=== PATIENT | female | born 1980 | race African-American/Black ===

== ENCOUNTER 2017-04-05 21:06 | Emergency (ER) | payer MEDICAID ==
[~2017-04-05] VITALS: Ht 170.2 cm; Wt 67.0 kg
[~2017-04-05 21:06] MED LIST: NORV100T PO; PENVK500 PO; PREZ150T PO; RALT400 PO; TRAM50 PO; TRUVTAB2 PO
[2017-04-05 21:08] VITALS: BP 149/88; PULSE 80; RESP 15; TEMP 99; O2SAT 99
--- NOTE | 2017-04-05 22:04 | PD ---
HPI Chief Complaint: Medical Clearance Time Seen by Provider: 22:00 Travel History International Travel<30 days: No Contact w/Intl Traveler<30days: No Traveled to known affect area: No History of Present Illness HPI 36-year-old black female presents emergency department requesting to get back on her HIV medicines. She states that she's been off her medication since November. She states that November 21 her mother . She had asked way from complications of heart disease. Since then she has not been taking her medications and been feeling increasingly depressed. She also states that she has a substance abuse problem. She does flakka, and crack cocaine. Patient states that she came in tonight because she knew she needed to get back on her medicines. She denies any toxic ingestions. She denies any suicidal ideation. No homicidal ideation. She does admit to feeling rundown, weak and having increased sleep which she reports is related to her HIV disease. PFSH Past Medical History Narrative Medical CVA with minor right sided weakness, HIV positive, anxiety, depression, substance abuse Anemia: Yes Arthritis: No Asthma: No Autoimmune Disease: Yes (HIV) Blood Disorders: Yes (ANEMIA) Anxiety: Yes Depression: Yes Heart Rhythm Problems: No Cancer: No Cardiovascular Problems: No High Cholesterol: No Chemotherapy: No Chest Pain: No Congestive Heart Failure: No COPD: No Cerebrovascular Accident: Yes Diabetes: No Diminished Hearing: No Endocrine: No GERD: No Glaucoma: No Genitourinary: No Headaches: No Hepatitis: No Hiatal Hernia: No Hypertension: No Immune Disorder: Yes Kidney Stones: No Musculoskeletal: No Neurologic: No Psychiatric: No Reproductive: No Respiratory: No Migraines: No Myocardial Infarction: No Radiation Therapy: No Renal Failure: No Seizures: No Sickle Cell Disease: No Sleep Apnea: No Thyroid Disease: No Ulcer: No Tetanus Vaccination: Unknown : 1 Para: 1 Past Surgical History Narrative Surgical Cholecystectomy, Abdominal Surgery: Yes (C -SECTION) AICD: No Appendectomy: No Arteriovenous Shunt: No Cardiac Surgery: No Section: Yes (X1) Cholecystectomy: Yes Ear Surgery: No Endocrine Surgery: No Eye Surgery: No Genitourinary Surgery: No Gynecologic Surgery: Yes (C SECTION) Insulin Pump: No Joint Replacement: No Oral Surgery: No Pacemaker: No Thoracic Surgery: No Other Surgery: Yes Social History Alcohol Use: Yes (occassional) Tobacco Use: Yes (CIGARETTES, 1 PPD X 13 YEARS) Substance Use: Yes Allergies-Medications (Allergen,Severity, Reaction): Coded Allergies: No Known Allergies (Verified , 04/05/17) Reported Meds & Prescriptions Reported Meds & Active Scripts Active Reported Prezista (Darunavir) 600 Mg Tab 600 Mg PO BID Truvada (Emtricitabine-Tenofovir Disoproxil Fumarate) Unknown Strength Tab Unknown Dose PO DAILY Isentress (Raltegravir) 400 Mg Tab 400 Mg PO BID Norvir (Ritonavir) 100 Mg Cap 100 Mg PO BID Review of Systems Except as stated in HPI: all other systems reviewed are Neg Physical Exam Narrative GENERAL: Well-developed, well-nourished in no apparent distress. Nontoxic appearing. HEAD: Normocephalic, atraumatic. EYES: Pupils equal round and reactive. Extraocular motions intact. No scleral icterus. No injection or drainage. ENT: Nose clear. Throat without erythema, tonsillar hypertrophy or exudate. Uvula midline. Airway patent. NECK: Trachea midline. Supple, nontender, moves head freely. No central bony tenderness or spasm. CARDIOVASCULAR: Regular rate and rhythm without murmurs, gallops, or rubs. RESPIRATORY: Clear to auscultation. Breath sounds equal bilaterally. No wheezes , rales, or rhonchi. GASTROINTESTINAL: Abdomen soft, non-tender, nondistended. No hepato-splenomegaly , or palpable masses. No guarding. EXTREMITIES: No clubbing, cyanosis, or edema. No joint tenderness. BACK: Nontender without deformity. No flank tenderness. NEUROLOGICAL: Awake, alert and oriented x 3 .Cranial nerves grossly intact. Motor and sensory grossly within normal limits. Normal speech. Data Data Last Documented VS Vital Signs Date Time Temp Pulse Resp B/P Pulse Ox O2 Delivery O2 Flow Rate FiO2 04/05/17 21:08 99.0 80 15 149/88 99 Room Air Orders Complete Blood Count With Diff (04/05/17 22:04) Comprehensive Metabolic Panel (04/05/17 22:04) Urinalysis - C+S If Indicated (04/05/17 22:04) Ed Urine Pregnancytest Poc (04/05/17 22:04) Urine Culture (04/05/17 22:30) Labs Laboratory Tests Test 04/05/17 22:30 White Blood Count 7.3 TH/MM3 Red Blood Count 4.73 MIL/MM3 Hemoglobin 11.0 GM/DL Hematocrit 33.9 % Mean Corpuscular Volume 71.7 FL Mean Corpuscular Hemoglobin 23.4 PG Mean Corpuscular Hemoglobin 32.6 % Concent Red Cell Distribution Width 18.5 % Platelet Count 209 TH/MM3 Mean Platelet Volume 9.5 FL Neutrophils (%) (Auto) 42.6 % Lymphocytes (%) (Auto) 46.4 % Monocytes (%) (Auto) 7.8 % Eosinophils (%) (Auto) 2.5 % Basophils (%) (Auto) 0.7 % Neutrophils # (Auto) 3.1 TH/MM3 Lymphocytes # (Auto) 3.4 TH/MM3 Monocytes # (Auto) 0.6 TH/MM3 Eosinophils # (Auto) 0.2 TH/MM3 Basophils # (Auto) 0.0 TH/MM3 CBC Comment AUTO DIFF Differential Comment AUTO DIFF CONFIRMED Platelet Estimate NORMAL Platelet Morphology Comment NORMAL Target Cells 1+ Urine Color YELLOW Urine Turbidity HAZY Urine pH 6.5 Urine Specific Anchor 1.019 Urine Protein TRACE mg/dL Urine Glucose (UA) NEG mg/dL Urine Ketones NEG mg/dL Urine Occult Blood NEG Urine Nitrite NEG Urine Bilirubin NEG Urine Urobilinogen LESS THAN 2.0 MG/DL Urine Leukocyte Esterase MOD Urine RBC 4 /hpf Urine WBC 9 /hpf Urine Squamous Epithelial 13 /hpf Cells Urine Renal Epithelial Cells <1 /hpf Urine Bacteria RARE /hpf Urine Mucus FEW /lpf Microscopic Urinalysis Comment CULTURE INDICATED Sodium Level 141 MEQ/L Potassium Level 3.7 MEQ/L Chloride Level 108 MEQ/L Carbon Dioxide Level 27.2 MEQ/L Anion Gap 6 MEQ/L Blood Urea Nitrogen 8 MG/DL Creatinine 0.91 MG/DL Estimat Glomerular Filtration 85 ML/MIN Rate Random Glucose 91 MG/DL Calcium Level 8.5 MG/DL Total Bilirubin 0.2 MG/DL Aspartate Amino Transf 26 U/L (AST/SGOT) Alanine Aminotransferase 19 U/L (ALT/SGPT) Alkaline Phosphatase 119 U/L Total Protein 8.4 GM/DL Albumin 2.5 GM/DL MDM Medical Decision Making Medical Screen Exam Complete: Yes Emergency Medical Condition: Yes Medical Record Reviewed: Yes Interpretation(s) Laboratory Tests Test 04/05/17 22:30 White Blood Count 7.3 TH/MM3 Red Blood Count 4.73 MIL/MM3 Hemoglobin 11.0 GM/DL Hematocrit 33.9 % Mean Corpuscular Volume 71.7 FL Mean Corpuscular Hemoglobin 23.4 PG Mean Corpuscular Hemoglobin 32.6 % Concent Red Cell Distribution Width 18.5 % Platelet Count 209 TH/MM3 Mean Platelet Volume 9.5 FL Neutrophils (%) (Auto) 42.6 % Lymphocytes (%) (Auto) 46.4 % Monocytes (%) (Auto) 7.8 % Eosinophils (%) (Auto) 2.5 % Basophils (%) (Auto) 0.7 % Neutrophils # (Auto) 3.1 TH/MM3 Lymphocytes # (Auto) 3.4 TH/MM3 Monocytes # (Auto) 0.6 TH/MM3 Eosinophils # (Auto) 0.2 TH/MM3 Basophils # (Auto) 0.0 TH/MM3 CBC Comment AUTO DIFF Differential Comment AUTO DIFF CONFIRMED Platelet Estimate NORMAL Platelet Morphology Comment NORMAL Target Cells 1+ Urine Color YELLOW Urine Turbidity HAZY Urine pH 6.5 Urine Specific Anchor 1.019 Urine Protein TRACE mg/dL Urine Glucose (UA) NEG mg/dL Urine Ketones NEG mg/dL Urine Occult Blood NEG Urine Nitrite NEG Urine Bilirubin NEG Urine Urobilinogen LESS THAN 2.0 MG/DL Urine Leukocyte Esterase MOD Urine RBC 4 /hpf Urine WBC 9 /hpf Urine Squamous Epithelial 13 /hpf Cells Urine Renal Epithelial Cells <1 /hpf Urine Bacteria RARE /hpf Urine Mucus FEW /lpf Microscopic Urinalysis Comment CULTURE INDICATED Sodium Level 141 MEQ/L Potassium Level 3.7 MEQ/L Chloride Level 108 MEQ/L Carbon Dioxide Level 27.2 MEQ/L Anion Gap 6 MEQ/L Blood Urea Nitrogen 8 MG/DL Creatinine 0.91 MG/DL Estimat Glomerular Filtration 85 ML/MIN Rate Random Glucose 91 MG/DL Calcium Level 8.5 MG/DL Total Bilirubin 0.2 MG/DL Aspartate Amino Transf 26 U/L (AST/SGOT) Alanine Aminotransferase 19 U/L (ALT/SGPT) Alkaline Phosphatase 119 U/L Total Protein 8.4 GM/DL Albumin 2.5 GM/DL Differential Diagnosis Differential diagnoses: HIV, electrolyte abnormality, UTI, infection Narrative Course Patient's laboratory tests reveal no obvious emergent process. I do not feel comfortable refilling the patient's HIV medicines today. There is no emergent reason that the patient be started on her meds this weekend. She is advised to see her infectious disease doctor on Saturday and discuss starting back on her medicines. The patient is medically cleared. This is medical clearance Diagnosis Primary Impression: medical clearance Patient Instructions: General Instructions Additional Instructions: Rest. Increase fluids. Follow-up with Elliott Euceda for help with drug addiction. Follow-up with your infectious disease doctor on Saturday does restart your HIV meds. Return to the ER for emergencies. Med/Other Pt SpecificInfo: No Meds Exist/No RX given Disposition: 01 DISCHARGE HOME Condition: Stable Yovani Rhoades April 05, 2017 22:04
[2017-04-05 22:41] LABS: AUTOMATED NEUTROPHIL # 3.1 TH/MM3 (1.8-7.7); BASOPHIL % 0.7 % (0.0-2.0); EOSINOPHIL # 0.2 TH/MM3 (0-0.4); EOSINOPHIL % 2.5 % (0.0-4.0); HEMATOCRIT 33.9 % (35.0-46.0); LYMPH % 46.4 % (9.0-44.0); LYMPHOCYTE # 3.4 TH/MM3 (1.0-4.8); MEAN CELL VOLUME 71.7 FL (80.0-100.0); MEAN CORPUSCULAR HEMOGLOBIN 23.4 PG (27.0-34.0); MEAN CORPUSCULAR HGB CONC 32.6 % (32.0-36.0); MONO % 7.8 % (0.0-8.0); NEUT % 42.6 % (16.0-70.0); PLATELET COUNT 209 TH/MM3 (150-450); RED BLOOD COUNT 4.73 MIL/MM3 (4.00-5.30); RED CELL DISTRIBUTION WIDTH 18.5 % (11.6-17.2); WHITE BLOOD COUNT 7.3 TH/MM3 (4.0-11.0)
[2017-04-05 22:44] LABS: HEMO FLAGS AUTO DIFF
[2017-04-05 23:03] LABS: ANION GAP 6 MEQ/L (5-15); AST (GOT) 26 U/L (15-37); BICARBONATE 27.2 MEQ/L (21.0-32.0); BLOOD UREA NITROGEN 8 MG/DL (7-18); CHLORIDE 108 MEQ/L (98-107); GLOMERULAR FILTRATION RATE 85 ML/MIN (>89); POTASSIUM 3.7 MEQ/L (3.5-5.1); SODIUM (NA) 141 MEQ/L (136-145)
[2017-04-05 23:06] LABS: ALKALINE PHOSPHATASE 119 U/L (45-117); ALT (GPT) 19 U/L (10-53); TOTAL BILIRUBIN ADULT 0.2 MG/DL (0.2-1.0)
[2017-04-05 23:21] LABS: PLATELET ESTIMATE SMEAR NORMAL (NORMAL); PLATELET MORPHOLOGY NORMAL (NORMAL); SCAN/DIFF AUTO DIFF CONFIRMED; TARGET CELLS 1+ (NORMAL)
[2017-04-05 23:27] LABS: BACTERIA, URINE RARE /hpf; BLOOD, URINE NEG (NEG); COMMENT (UR) CULTURE INDICATED; CULTURE IF INDICATED CULTURE INDICATED; GLUCOSE,URINE NEG (NEG); KETONE, URINE NEG (NEG); MUCUS URINE FEW /lpf (OCC); NITRITE,URINE NEG (NEG); PH, URINE 6.5 (5.0-8.5); RENAL EPITHELIAL CELLS <1 /hpf; SQUAMOUS EPITHELIAL CELL URINE 13 /hpf (0-5); URINE COLOR YELLOW (YELLW/STRAW)
[2017-04-05] MEDS ORDERED: TRUVTAB2 PO (23:56)
[2017-04-05] MEDS ORDERED: PREZ600T2 PO (23:56)
[2017-04-05] MEDS ORDERED: RITO100 PO (23:56)
[2017-04-05] MEDS ORDERED: RALT400 PO (23:56)
[2017-04-05] MEDS ORDERED: EMTR1TAB5 PO (23:56)
[2017-04-06 00:41] VITALS: BP 139/80
== END 2017-04-06 00:55 | disposition home or self-care (01) ==
LOC: NEPD 21:06
DX: B20 Human immunodeficiency virus [HIV] disease (principal); N39.0 Urinary tract infection, site not specified; B96.89 Other specified bacterial agents as the cause of diseases classified elsewhere
CPT/HCPCS: 80053; 81001; 85025; 87086; 99283